=== PATIENT | male | born 1985 | race Caucasian/White ===

== ENCOUNTER 2019-05-22 10:23 | Emergency (ER) | payer OTHER ==
[2019-05-22] MEDS ORDERED: Ketorolac INJ* 30 MG/ML 1 ML VIAL IM ONE (11:23)
--- NOTE | 2019-05-22 11:42 | ED ---
"Back Pain - HPI Summary HPI Summary: Patient is a 33 y/o M presenting to [facility] with complaints of left lower back pain secondary to fall. On 05/18/19, the patient was walking up the stairs to his house. At the top step, the patient slipped on some ice and fell backwards. He states that he fell down straight to the bottom step and struck the left side of his back. Patient states that there were five steps in total and denies hitting any other steps. No LOC, no head injury, no other injuries in general are reported. He states that the pain has been constant and has worsened since onset. Patient reports that he has only been taking ibuprofen for pain with minimal relief in Sx. He states that heat helps the pain momentarily. Patinet is on protonix and denies any other prescribed medications. Hematuria is denied. He notes that he experiences intermittent tingling at his toes but denies acute numbness/tingling of his legs or groin area. Patient notes Hx of chronic right-sided sciatic pain. He claims that in 2006, he fell from the attic in his garage while stepping down from a ladder. Patient reports landing on his back and claims that he experienced multiple injuries, including compression of his right-sided sciatic nerve. However, he claims that no surgeries were done as he did not have insurance at the time. Patient is currently on [place]. He states that he smokes around 1/2 pack of cigarettes daily. He used to vape but stopped when his vape broke. He drinks alcohol around once a month and denies Hx of substance abuse. He claims only environmental allergies. PCP is through [facility], he is unsure of the provider's name. Home medications and allergies are reviewed. - History of Current Complaint Chief Complaint: EDBackInjuryPain Stated Complaint: BACK INJ FROM FALL PER PT Time Seen by Provider: 05/22/19 11:05 Hx Obtained From: Patient, Other: - Pau [facility] | Reference #: [id number] Onset/Duration: Lasting Days, Still Present, Worse Since Onset/Duration: Started Days Ago, Still Present, Worse Since Timing: Constant, Lasting Days Back Pain Location: Is Discrete @ - left lower back Severity Initially: Moderate Severity Currently: Severe Pain Intensity: 8 Pain Scale Used: 0-10 Numeric Alleviating Symptom(s): Heat - momentarily, OTC Meds - ibuprofen provides minimal relief Associated Signs And Symptoms: Positive: Other - negative - hematuria. Negative : Numbness, Tingling - tingling of toes intermittently but no acute tingling - Allergies/Home Medications Allergies/Adverse Reactions: Allergies Allergy/AdvReac Type Severity Reaction Status Date / Time No Known Allergies Allergy Verified 05/22/19 10:31 PMH/Surg Hx/FS Hx/Imm Hx Previously Healthy: Yes GI History: Reports: Hx Gastroesophageal Reflux Disease Sensory History: Denies: Hx Legally Blind, Hx Deafness Opthamlomology History: Denies: Hx Legally Blind EENT History: Denies: Hx Deafness Infectious Disease History: No Infectious Disease History: Denies: Traveled Outside the [place] in Last 30 Days - Family History Known Family History: Negative: Cardiac Disease, Hypertension, Diabetes - Social History Alcohol Use: Rare Substance Use Type: Reports: None Smoking Status (MU): Light Every Day Tobacco Smoker Review of Systems Constitutional: Negative Eyes: Negative Negative: hematuria Musculoskeletal: Other - positive - left lower back pain Negative: Paresthesia - intermittent tingling of toes, no acute tingling , Numbness All Other Systems Reviewed And Are Negative: Yes Physical Exam - Summary Physical Exam Summary: Vital Signs Reviewed: Yes A+Ox3, no distress Eyes: Conjunctiva Clear ENT: Hearing grossly normal neck: supple Respiratory: Positive: No respiratory distress, No accessory muscle use CTA throughout no w/r Cardiovascular: skin color reflect adequate perfusion RRR nl s1 s2 no m/r 2+ PT. DP Musculoskeletal Exam: No spinous process pain c/t/l/s + TTP right distal paraspinal discomfort with direct palp low + SLE b/l + flex/ext knee, ankle + great toe extension ambulatory with mild discomfort Neurological: Positive: Alert, ambulatory with mild discomfort + gross sensation 2+ patellar b/l no clonus Psychological: Positive: Normal Response To examiner Skin: Positive: no rash, no ecchymosis Triage Information Reviewed: Yes Vital Signs On Initial Exam: Initial Vitals Temp Pulse Resp BP Pulse Ox 98.0 F 92 19 162/95 95 05/22/19 10:24 05/22/19 10:24 05/22/19 10:24 05/22/19 10:24 05/22/19 10:24 Procedures - Sedation Patient Received Moderate/Deep Sedation with Procedure: No Diagnostics - Vital Signs Vital Signs Temp Pulse Resp BP Pulse Ox 05/22/19 11:10 74 138/83 94 05/22/19 11:08 75 96 05/22/19 10:24 98.0 F 92 19 162/95 95 - Laboratory Lab Statement: Any lab studies that have been ordered have been reviewed, and results considered in the medical decision making process. - Radiology LUMBAR SPINE X-RAY Radiology Interpretation Completed By: Radiologist Summary of Radiographic Findings: IMPRESSION: No fracture of the lumbar spine is noted. THIS REPORT WAS REVIEWED BY ED PHYSICIAN. Re-Evaluation - Re-Evaluation First Eval Re-Evaluation Time: 12:27 Change: Improved Comment: Reviewed xray with pt; patient states that the pain was a bit improved with toradol. Apap/ibuprofen, hydration, heat, stretch, flexeril, work note, PCP for follow up management. Back Pain Course/Dx - Course Course Of Treatment: Patient presents to emergency reporting back pain. Patient states he slipped down some stairs 4 days ago and denies any back pain patient with pain in his right low back extending to his right buttock. Patient states she's been taking Motrin with short-term relief. Reflexes Motrin was last night. Patient denies any blood in his urine. No leg weakness. Patient states the pain has been intense he has an ambulance physical. On exam vital signs are reviewed. Patient able to a bili was slight discomfort. Patient has point tenderness the right lower lumbar area. Patient was good distal CSM. No crepitus. Pain is paraspinal. We'll check x-rays and give Toradol. I did do an i-stop that shows patient was given some narcotics on 05/17 from a dentist. I will discuss with patient as well. - Diagnoses Provider Diagnoses: Lumbar pain, Back muscle spasm Discharge ED - Sign-Out/Discharge Documenting (check all that apply): Patient Departure - Discharge Plan Condition: Stable Disposition: HOME Prescriptions: Cyclobenzaprine TAB* [Flexeril 10 MG TAB*] 5 - 10 mg PO Q8HR #10 tab Patient Education Materials: Muscle Spasm (ED), Back Pain (ED) Referrals: [facility]ERRAL [Outside] No Primary Care Phys,NOPCP [Primary Care Provider] - Additional Instructions: - Okay to alternate ibuprofen (Advil, Motrin) 600mg and Tylenol product (Tylenol ) every 3hours as needed for pain. Take with food. Do NOT take for more than 4- 5 days. -Take flexeril - muscle relaxer as prescribed - this medication causes sleepiness - do not drive, operate machinery or drink alcohol while taking this medication -Apply moist heat to your back for 20 minutes at a time, 4-5 times a day. Once your muscles are warm, slow gentle stretching exercises are important -Contact your doctor tomorrow to arrange a follow-up appointment next week. -If you pain is uncontrolled or you have difficulty controling your urine or other concerns - return to an emergency department for further evaluation and treatment - Billing Disposition and Condition Condition: STABLE Disposition: Home - Attestation Statements Document Initiated by Chetan: Yes Documenting Scribe: SHAKEEL YADAV Provider For Whom Chetan is Documenting (Include Credential): PAU CHARLES MD Scribe Attestation: SHAKEEL Ace, scribed for PAU CHARLES MD on 05/22/19 at 1233. Scribe Documentation Reviewed: Yes Provider Attestation: The documentation as recorded by the SHAKEEL babin accurately reflects the service I personally performed and the decisions made by me, PAU CHARLES MD Status of Scribe Document: Viewed"
[2019-05-22 12:47] VITALS: BP 122/76
== END 2019-05-22 12:46 | disposition home or self-care (01) ==
LOC: ED 10:23
DX: M54.5 Low back pain (principal); M62.830 Muscle spasm of back; R20.2 Paresthesia of skin; W10.9XXA Fall (on) (from) unspecified stairs and steps, initial encounter; Y92.9 Unspecified place or not applicable; F17.200 Nicotine dependence, unspecified, uncomplicated
CPT/HCPCS: 72100; 96372; 99283; J1885